=== PATIENT | female | born 1975 | race Caucasian/White ===

== ENCOUNTER 2023-03-21 01:12 | Emergency (ER) | payer MEDICAID ==
[~2023-03-21] VITALS: Ht 165.1 cm; Wt 77.0 kg
[2023-03-21 01:21] VITALS: BP 146/87
[2023-03-21] MEDS ORDERED: NAPR-681 MT (06:24)
[2023-03-21] MEDS ORDERED: ACET-2708 MT (06:24)
== END 2023-03-21 07:00 | disposition home or self-care (01) ==
LOC: ER 01:12
DX: S00.83XA Contusion of other part of head, initial encounter (principal); X58.XXXA Exposure to other specified factors, initial encounter; Y93.89 Activity, other specified; Y92.89 Other specified places as the place of occurrence of the external cause; Y99.8 Other external cause status
CPT/HCPCS: 70486; 99284